=== PATIENT | female | born 1980 | race Caucasian/White ===

== ENCOUNTER → 2021-06-18 | Outpatient (CLI) | payer OTHER | LOC: M.RAD 10:32 | PROVIDERS: ATTEND Registered Nurse Diabetes Educator | DX: Z12.31 Encounter for screening mammogram for malignant neoplasm of breast (principal) ==

== ENCOUNTER → 2021-06-26 | Outpatient (CLI) | payer OTHER | LOC: M.RAD 06-19 11:47 | PROVIDERS: ATTEND Registered Nurse Diabetes Educator | DX: N63.10 Unspecified lump in the right breast, unspecified quadrant (principal) ==